=== PATIENT | male | born 1960 | race Caucasian/White ===

== ENCOUNTER 2020-01-06 08:21 | Emergency (ER) | payer OTHER ==
[~2020-01-06] VITALS: Ht 179.1 cm; Wt 114.2 kg
[2020-01-06] MEDS ORDERED: IV NORMAL SALINE 1,000ML 1,000 ML IV SCH (08:32)
--- NOTE | 2020-01-06 08:40 | PHYS DOC ---
Past History Past Medical History: Arthritis, Hyperthyroid Past Medical History chronic alcohol use, rosasia Past Surgical History hernia, knee, lipoma Smoking: Non-smoker Alcohol Use: Heavy Drug Use: None General Adult EDM: Chief Complaint: abd pain, decreased urination HPI: HPI: Patient is a 59 year old male who presents for evaluation of difficulty urination some constipation followed by intermittent loose stools as well as diffuse abdominal pain. Patient has pain to both of his lower sides of his abdomen and his upper abdominal area. Patient denied any black, bloody or tarry stools. Patient had nausea and vomiting about 4 AM yesterday. Patient denies any urinary complaints including bloody urine, burning urgency or frequency. Patient states that he has been under a lot of stress this week as a spouse is left him. He has consumed more alcohol than normal. Patient's main presenting concern was his difficulty urination. Patient states that due to discomfort he also had trouble sleeping. Patient is also concerned about his hemorrhoids. [place] Review of Systems: Review of Systems: Constitutional: Denies fever or chills Eyes: Denies change in visual acuity HENT: Denies nasal congestion or sore throat Respiratory: Denies cough or shortness of breath Cardiovascular: Denies chest pain or edema GI: has abdominal pain with nausea and vomiting, no bloody stools or diarrhea : Denies dysuria Musculoskeletal: Denies back pain or joint pain Integument: Denies rash Neurologic: Denies headache, focal weakness or sensory changes Endocrine: Denies polyuria or polydipsia Lymphatic: Denies swollen glands Psychiatric: has depression and anxiety Heart Score: HEART Score for Chest Pain: HEART Score for Chest Pain Response (Comments) Value History Slighlty/Non-Suspicious 0 ECG Normal 0 Age >45 - < 65 1 Risk Factors 1 or 2 Risk Factors 1 Troponin < Normal Limit 0 Total 2 Risk Factors: Risk Factors: DM, Current or recent (<one month) smoker, HTN, HLP, family history of CAD, obesity. Risk Scores: Score 0 - 3: 2.5% MACE over next 6 weeks - Discharge Home Score 4 - 6: 20.3% MACE over next 6 weeks - Admit for Clinical Observation Score 7 - 10: 72.7% MACE over next 6 weeks - Early Invasive Strategies Physical Exam: PE: Constitutional: Well developed, well nourished, mild to early moderate distress, non-toxic appearance. [] HENT: Normocephalic, atraumatic, bilateral external ears normal, oropharynx moist, no oral exudates, nose normal. [] Eyes: PERRL, EOMI, conjunctiva normal, no discharge. [] Neck: Normal range of motion, no tenderness, supple, no stridor. [] Cardiovascular:Tachy rate, regular rhythm, no murmur [] Lungs & Thorax: Bilateral breath sounds clear to auscultation [] Abdomen: Bowel sounds normal, soft, mild epigastric tenderness, no masses, no pulsatile masses. [] Skin: Warm, dry, no erythema, no rash. [] Back: No tenderness, no CVA tenderness. [] Extremities: No tenderness, no cyanosis, no clubbing, ROM intact, no edema. [] Neurologic: Alert and oriented X 3, normal motor function, normal sensory function, no focal deficits noted. [] Psychologic: Affect normal, judgement normal,anxious mood, no homicidal or suicidal. Rectal: Small nonbleeding hemorrhoid present, normal colored stool, minimally tender, slight prostate enlargement [] Current Patient Data: Labs: Laboratory Tests Test 01/06/20 08:51 01/06/20 09:10 White Blood Count 6.1 x10^3/uL Red Blood Count 4.91 x10^6/uL Hemoglobin 16.0 g/dL Hematocrit 47.1 % Mean Corpuscular Volume 96 fL Mean Corpuscular Hemoglobin 33 pg Mean Corpuscular Hemoglobin Concent 34 g/dL Red Cell Distribution Width 13.6 % Platelet Count 115 x10^3/uL Neutrophils (%) (Auto) 60 % Lymphocytes (%) (Auto) 30 % Monocytes (%) (Auto) 7 % Eosinophils (%) (Auto) 3 % Basophils (%) (Auto) 1 % Neutrophils # (Auto) 3.7 x10^3uL Lymphocytes # (Auto) 1.9 x10^3/uL Monocytes # (Auto) 0.4 x10^3/uL Eosinophils # (Auto) 0.2 x10^3/uL Basophils # (Auto) 0.0 x10^3/uL Sodium Level 137 mmol/L Potassium Level 3.2 mmol/L Chloride Level 100 mmol/L Carbon Dioxide Level 28 mmol/L Anion Gap 9 Blood Urea Nitrogen 12 mg/dL Creatinine 1.0 mg/dL Estimated GFR (Cockcroft-Gault) 76.2 BUN/Creatinine Ratio 12 Glucose Level 189 mg/dL Calcium Level 9.1 mg/dL Total Bilirubin 1.9 mg/dL Aspartate Amino Transf (AST/SGOT) 114 U/L Alanine Aminotransferase (ALT/SGPT) 113 U/L Alkaline Phosphatase 131 U/L Troponin I Quantitative < 0.017 ng/mL Total Protein 7.6 g/dL Albumin 3.8 g/dL Albumin/Globulin Ratio 1.0 Lipase 243 U/L Urine Collection Type Void Urine Color Masha Urine Clarity Clear Urine pH 7.0 Urine Specific Webster 1.020 Urine Protein 30 mg/dl Urine Glucose (UA) Neg mg/dL Urine Ketones (Stick) 15 mg/dL Urine Blood Trace Urine Nitrite Neg Urine Bilirubin Small Urine Urobilinogen Dipstick 1.0 mg/dL Urine Leukocyte Esterase Neg Urine RBC 0 /HPF Urine WBC 1-4 /HPF Urine Squamous Epithelial Cells Occ /LPF Urine Bacteria 0 /HPF Urine Mucus Slight /LPF Current Medications Medications (Trade) Dose Ordered Sig/Timmy Route PRN Reason Start Time Stop Time Status Last Admin Dose Admin Sodium Chloride 1,000 ml @ 1,000 mls/hr Q1H IV 01/06/20 08:32 01/06/20 09:31 DC 01/06/20 08:52 Famotidine (Pepcid Vial) 20 mg 1X ONCE IVP 01/06/20 08:45 01/06/20 08:46 DC 01/06/20 08:53 Hydralazine HCl (Apresoline) 10 mg 1X ONCE IV 01/06/20 08:45 01/06/20 08:58 DC Famotidine (Pepcid Vial) 20 mg STK-MED ONCE .ROUTE 01/06/20 08:45 01/06/20 08:45 DC Hydralazine HCl (Apresoline) 20 mg STK-MED ONCE .ROUTE 01/06/20 08:45 01/06/20 08:45 DC Hydralazine HCl (Apresoline) 5 mg 1X ONCE IV 01/06/20 09:00 01/06/20 09:02 DC 01/06/20 09:03 EKG: EKG: EKG read at 8:44 AM shows sinus tacky rate 108 with a leftward axis, otherwise unremarkable EKG, not STEMI [] Radiology/Procedures: Radiology/Procedures: [address] [address] IMAGING REPORT Signed PATIENT: HAILE HAYES ACCOUNT: [id number] : 1960 LOCATION: ER AGE: 59 SEX: M EXAM STATUS: REG ER ORD. PHYSICIAN: MELO CASILLAS DO REASON: upper abd pain, short of air PROCEDURE: PORTABLE CHEST 1V Examination: PORTABLE CHEST 1V History: Reason: upper abd pain, short of air / Spl. Instructions: / History: Comparison/Correlation: None Findings: Portable chest x-ray shows performed. Heart size and pulmonary vasculature are normal. No infiltrate or pleural effusion. No pneumothorax. Calcified granulomas are present. Bony structures are unremarkable. Impression: No active disease. Electronically signed by: Anuj Virgen MD (01/06/2020 8:56 AM) [id number] DICTATED AND SIGNED BY: ANUJ VIRGEN MD DATE: 01/06/20 0856 CC: PCP,UNKNOWN; MELO CASILLAS DO ~ [] Impressions: [address] [address] IMAGING REPORT Signed PATIENT: HAILE HAYES ACCOUNT: [id number] : 1960 LOCATION: ER AGE: 59 SEX: M EXAM STATUS: REG ER ORD. PHYSICIAN: MELO CASILLAS DO REASON: abd pain, loose stools PROCEDURE: CT ABD PELV W/ORAL&IV CONTRAST Examination: CT ABD PELV W/ORAL IV CONTRAST History: Reason: abd pain, loose stools / Spl. Instructions: DRINKING 04-15 / History: Comparison/Correlation: None Findings: Axial images of the abdomen and pelvis were obtained following IV and oral contrast. Sagittal and coronal reformatted images were provided. Visualized lung bases are unremarkable. Liver is unremarkable. Spleen measures 13.8 cm longitudinal by 14.9 cm x 6 cm with calcified granulomas. Pancreas is normal. The adrenal glands are normal. Bilateral renal low-attenuation lesions are too small to characterize but appear to represent cysts and do not require follow-up. A right inferior pole nonobstructive calyceal calculus measuring 0.4 cm diameter is present. No hydronephrosis. No extraluminal gas. No inflammatory findings about the cecum. Appendix is not delineated. No enlarged abdominal or pelvic lymph nodes. The gallbladder fossa is unremarkable. Small umbilical hernia containing fat. Urinary bladder is unremarkable. Prostate gland measures 5.9 cm x 3.3 cm. Moderate to severe L1-2 disc space narrowing is present. Moderate L3-4 and L4-5 disc space narrowing also seen. Impression: No inflammatory process or obstruction. Borderline to mildly enlarged spleen. No mass seen. Mild prostatomegaly. Nonobstructive right renal lower pole calyceal calculus. PQRS Compliance Statement: One or more of the following individualized dose reduction techniques were utilized for this examination: 1. Automated exposure control 2. Adjustment of the mA and/or kV according to patient size 3. Use of iterative reconstruction technique Electronically signed by: Anuj Virgen MD (01/06/2020 11:36 AM) [id number] DICTATED AND SIGNED BY: ANUJ VIRGEN MD DATE: 01/06/20 1136 CC: PCP,UNKNOWN; MELO CASILLAS DO ~ Course & Med Decision Making: Course & Med Decision Making Pertinent Labs and Imaging studies reviewed. (See chart for details) [] Dragon Disclaimer: Dragon Disclaimer: This electronic medical record was generated, in whole or in part, using a voice recognition dictation system. 1145 stable, patient reassessed and pain is essentially resolved. CT scan showed stable results. Patient does have an enlarged prostate with may be contributing to his difficulty in urinating. There is no evidence of a urinary tract infection. Patient does not have pancreatitis. Prescription for Zofran given since patient has been vomiting about 24 hours ago. Bottom line he is medically stable for discharge and no indication for admission. Close follow-up recommended. Patient is also aware he has a stone in his kidney but not a hydroureter. No evidence of colitis or obstruction Departure Departure: Impression: Primary Impression: Abdominal pain, generalized Additional Impressions: Dysuria Enlarged prostate Constipated Qualified Codes: K59.00 - Constipation, unspecified Nausea & vomiting Disposition: HOME/RESIDENCE PRIOR TO ADM Condition: STABLE Referrals: PCP,UNKNOWN (PCP) Patient Instructions: Abdominal Pain, Constipation, Adult, Nausea and Vomiting, Prostate Problems Additional Instructions: Drink plenty fluids, rest, use [id number] MiraLAX or equivalent as directed to help you with your bowel movements. You have an enlarged prostate that will need follow-up with your physician. There was no dangerous finding on your CT scan. Prescription for Zofran given Scripts Ondansetron Hcl (ZOFRAN) 4 Mg Tablet 1 TAB PO PRN Q6HRS PRN for NAUSEA, #12 TAB Prov: MELO CASILLAS DO 01/06/20 Justification of Admission: Justification of Admission: Justification of Admission Dx: N/A MELO CASILLAS DO Jan 06, 2020 08:40
[2020-01-06] MEDS ORDERED: FAMOTIDINE 20 MG/2 ML VIAL ONE (08:45)
[2020-01-06] MEDS ORDERED: hydrALAZINE 20 MG/ML VIAL. ONE (08:45)
[2020-01-06] MEDS ORDERED: FAMOTIDINE 20 MG/2 ML VIAL IVP ONE (08:45)
[2020-01-06] MEDS ORDERED: hydrALAZINE 20 MG/ML VIAL. IV ONE ×2 (08:45→09:00)
--- NOTE | 2020-01-06 08:59 | RAD ---
Examination: PORTABLE CHEST 1V History: Reason: upper abd pain, short of air / Spl. Instructions: / History: Comparison/Correlation: None Findings: Portable chest x-ray shows performed. Heart size and pulmonary vasculature are normal. No infiltrate or pleural effusion. No pneumothorax. Calcified granulomas are present. Bony structures are unremarkable. Impression: No active disease. Electronically signed by: Anuj Ivy MD (01/06/2020 8:56 AM) [id number]
[2020-01-06 09:14] LABS: BASO % 1 % (0-3); EOS # 0.2 x10^3/uL (0.0-0.7); EOS % 3 % (0-3); HEMATOCRIT 47.1 % (39.0-53.0); LYMPH # 1.9 x10^3/uL (1.0-4.8); LYMPH % 30 % (24-48); MEAN CORPUSCULAR HEMOGLOBIN 33 pg (25-35); MEAN CORPUSCULAR HGB CONC 34 g/dL (31-37); MEAN CORPUSCULAR VOLUME 96 fL (79-100); MONO # 0.4 x10^3/uL (0.0-1.1); MONO % 7 % (0-9); NEUT # 3.7 x10^3uL (1.8-7.7); NEUT % 60 % (31-73); PLATELET COUNT 115 x10^3/uL (140-400); RED BLOOD COUNT 4.91 x10^6/uL (4.30-5.70); RED CELL DISTRIBUTION WIDTH 13.6 % (11.5-14.5); WHITE BLOOD COUNT 6.1 x10^3/uL (4.0-11.0)
[2020-01-06 09:20] LABS: CALCIUM 9.1 mg/dL (8.5-10.1); GFR 76.2; POTASSIUM 3.2 mmol/L (3.5-5.1)
[2020-01-06 09:26] LABS: ALBUMIN 3.8 g/dL (3.4-5.0); TOTAL BILIRUBIN 1.9 mg/dL (0.2-1.0); TOTAL PROTEIN 7.6 g/dL (6.4-8.2)
[2020-01-06 09:45] LABS: BILIRUBIN,URINE SMALL (NEG); CLARITY,URINE CLEAR; COLOR,URINE AMBER; GLUCOSE,URINE NEG (NEG)
[2020-01-06 09:46] LABS: BACTERIA,URINE 0 /HPF (0-FEW); NITRITE,URINE NEG (NEG); RBC,URINE 0 /HPF (0-2); SQUAMOUS EPITHELIAL CELL,UR OCC /LPF
[2020-01-06] MEDS ORDERED: IOHEXOL 240 MG/ML 50ML VIAL. ONE (09:55)
[2020-01-06] MEDS ORDERED: IOHEXOL 240 MG/ML 50ML VIAL. PO ONE (10:15)
[2020-01-06] MEDS ORDERED: IOHEXOL 300 MG/ML 75 ML VIAL. IV ONE (10:15)
[2020-01-06 10:31] LABS: FECAL OB PT POSITIVE (NEG)
--- NOTE | 2020-01-06 10:42 | EKG ---
[address] [address] Test Date: 2020-01-06 Test Time: 08:40:06 Pat Name: HAILE HAYES Department: Room: Gender: M [employer]: : 1960 Requested By: MELO CASILLAS Order Number: [id number] Reading MD: Measurements Intervals [place] Rate: 108 P: 52 NV: 142 QRS: 2 QRSD: 92 T: 25 QT: 338 QTc: 457 Interpretive Statements SINUS TACHYCARDIA OTHERWISE NORMAL ECG RI6.02 No previous ECG available for comparison
--- NOTE | 2020-01-06 11:39 | RAD ---
Examination: CT ABD PELV W/ORAL IV CONTRAST History: Reason: abd pain, loose stools / Spl. Instructions: DRINKING 10-11 / History: Comparison/Correlation: None Findings: Axial images of the abdomen and pelvis were obtained following IV and oral contrast. Sagittal and coronal reformatted images were provided. Visualized lung bases are unremarkable. Liver is unremarkable. Spleen measures 13.8 cm longitudinal by 14.9 cm x 6 cm with calcified granulomas. Pancreas is normal. The adrenal glands are normal. Bilateral renal low-attenuation lesions are too small to characterize but appear to represent cysts and do not require follow-up. A right inferior pole nonobstructive calyceal calculus measuring 0.4 cm diameter is present. No hydronephrosis. No extraluminal gas. No inflammatory findings about the cecum. Appendix is not delineated. No enlarged abdominal or pelvic lymph nodes. The gallbladder fossa is unremarkable. Small umbilical hernia containing fat. Urinary bladder is unremarkable. Prostate gland measures 5.9 cm x 3.3 cm. Moderate to severe L1-2 disc space narrowing is present. Moderate L3-4 and L4-5 disc space narrowing also seen. Impression: No inflammatory process or obstruction. Borderline to mildly enlarged spleen. No mass seen. Mild prostatomegaly. Nonobstructive right renal lower pole calyceal calculus. PQRS Compliance Statement: One or more of the following individualized dose reduction techniques were utilized for this examination: 1. Automated exposure control 2. Adjustment of the mA and/or kV according to patient size 3. Use of iterative reconstruction technique Electronically signed by: Anuj Ivy MD (01/06/2020 11:36 AM) [id number]
[2020-01-06] MEDS ORDERED: ONDA4TAB7 PO (11:50)
[2020-01-06 11:55] VITALS: BP 186/105
== END 2020-01-06 11:55 | disposition home or self-care (01) ==
LOC: ER 08:21
DX: K59.00 Constipation, unspecified (principal); N40.0 Benign prostatic hyperplasia without lower urinary tract symptoms; R30.0 Dysuria; R11.2 Nausea with vomiting, unspecified; M19.90 Unspecified osteoarthritis, unspecified site; E05.90 Thyrotoxicosis, unspecified without thyrotoxic crisis or storm; F10.20 Alcohol dependence, uncomplicated; Y90.9 Presence of alcohol in blood, level not specified
CPT/HCPCS: 36415; 71045; 74177; 80053; 81001; 82274; 83690; 84484; 85025; 93005; 96361; 96374; 96375; 99285; J0360; J3490; J7030; Q9966; Q9967

== ENCOUNTER 2020-06-10 23:20 | Emergency (ER) | payer OTHER ==
[~2020-06-10] VITALS: Ht 179.1 cm; Wt 117.0 kg
[~2020-06-10 23:20] MED LIST: ONDA4TAB7 PO
--- NOTE | 2020-06-10 23:35 | PHYS DOC ---
Past History Past Medical History: Arthritis, Hyperthyroid Additional Past Medical Histor: rosacea Past Medical History Enlarged prostate Past Surgical History: Other Additional Past Surgical Histo: hernia repair; lypoma removed left groin; right shoulder; right knee Smoking: Non-smoker Alcohol Use: Heavy Drug Use: None General Adult EDM: Chief Complaint: NAUSEA/VOMITING/DIARRHEA HPI: HPI: ".. I ve been vomiting constant... I think it was bad left over chilli... I can't even keep my meds now... I did drink a little bit too much on Thursday...".. " My left me.. three days ago.. we had an argument over me distal discipline for her son,, he 14.. well anyway... I did a alcohol culp.. really over did it .. I done that before.. but I always stop.. " Patient is a 59 year old retired [employer] male who presents with above hx and complaints of nausea, vomiting, fever, chills, arthralgia, myalgia, malaise last 2 days. Patient has a 30-year history. Patient thinks symptoms started after eating some bad chili. Patient does admit to heavy drinking on Thursday . Patient does not drink alcohol every day. No recent travel outside the [place] area. No specific ill contacts. Does have a history of hypertension, however has not been unable to take his hypertensive meds because of the nausea and vomiting. Patient does have a history of hyperthyroid, and arthritis. Patient does have a history of hyperplasia of prostate. The pt. follows with [facility] and [place] for his health care. Patient denies any previous history of hepatitis. Has had multiple overseas tours of duty. Has been generally healthy up to the last few years. Review of Systems: Review of Systems: Constitutional: Complains of fever and chills Eyes: Denies change in visual acuity HENT: Complains of sore throat Respiratory: Complaints of some nonproductive cough Cardiovascular: Denies chest pain or edema GI: Complains of epigastric abdominal pain, nausea, vomiting,. Patient denies a ny diarrhea. : Denies dysuria . Patient does have history of urinary retention secondary to enlarged prostate Musculoskeletal: Denies back pain or joint pain Integument: Denies rash Neurologic: Denies headache, focal weakness or sensory changes Endocrine: Denies polyuria or polydipsia Lymphatic: Denies swollen glands Psychiatric: History of recent depression over his leaving 3 days ago. Patient denies any suicidal ideation. Family History: Family History: Noncontributory to presentation Current Medications: Current Meds: See nursing for home meds Allergies: Allergies: Allergies Coded Allergies Type Severity Reaction Last Updated Verified No Known Drug Allergies 01/06/20 No Physical Exam: PE: Constitutional: In acute distress, ill in appearance. [] HENT: Normocephalic, atraumatic, bilateral external ears normal, oropharynx dry , no oral exudates, nose normal. [] Eyes: PERRLA, EOMI, conjunctiva normal, no discharge. [] Neck: Normal range of motion, no tenderness, supple, no stridor. [] Cardiovascular: Tachycardia heart rate regular rhythm, no murmur, PMI to the lef t Lungs & Thorax: Bilateral breath sounds equal apex with scattered wheezes on auscultation [] Abdomen: Bowel sounds hyperactive, soft, some localization upper right quadrant and epigastric, but has generalized tenderness, no masses, no pulsatile masses. Rebound to epigastric area. Lt. groin scar. Skin: Warm, dry, no erythema, rosacea. Poor turgor Back: No tenderness, no CVA tenderness. [] Extremities: No tenderness, no cyanosis, no clubbing, ROM intact, no edema. Rt. shoulder scar., Neurologic: Alert and oriented X 3, moves all extremities on request, does have distal sensory, no focal deficits noted. Does have a fine tremor Psychologic: Affect anxious, judgement normal, mood normal. [] EKG: EKG: My interpretation EKG shows sinus tachycardia 114 bpm. No findings of acute STEMI with contralateral lateral changes. [] Radiology/Procedures: Radiology/Procedures: [[address] [address] IMAGING REPORT Signed PATIENT: HAILE HAYES ACCOUNT: [id number] : 1960 LOCATION: ER AGE: 59 SEX: M EXAM STATUS: REG ER ORD. PHYSICIAN: KATELYNN ROD MD REASON: NV, PAIN, ELV. LFTS, OMNI 300, 75ml & OMNI 240, 30ml PROCEDURE: CT ABD PELV W/ORAL&IV CONTRAST CT ABD PELV W/ORAL IV CONTRAST History: Reason: NV, PAIN, ELV. LFTS, OMNI 300, 75ml OMNI 240, 30ml / Spl. Instructions: / History: Technique: Noncontrast examination of the abdomen and pelvis. Coronal and sagittal reconstructions were performed. Exposure: One or more of the following individualized dose reduction techniques were utilized for this examination: 1. Automated exposure control 2. Adjustment of the mA and/or kV according to patient size 3. Use of iterative reconstruction technique. Comparison: January 06, 2020 Findings: Lower chest: No consolidation or pleural effusion. Abdomen and pelvis: Hepatic steatosis. Slightly nodular contour of the liver. The spleen, adrenal glands, pancreas and gallbladder are unremarkable. No biliary ductal dilatation. Small bilateral renal hypodensities, likely cysts. Punctate right inferior intrarenal calculus. No hydronephrosis. Appendix not well identified. No evidence of bowel obstruction. Oral contrast opacifies to the level of the cecum. Small fat-containing umbilical hernia. No ascites. Atheromatous plaque throughout the nonaneurysmal abdominal aorta and branch vessels. Minimal dahlia mesentery with prominent mesenteric lymph nodes, unchanged. Bones: No pathologic osseous lesions. Impression: 1. No acute abdominal or pelvic pathology. 2. Slightly nodular contour of the liver, can be seen with chronic liver disease. 3. Nonobstructing right inferior intrarenal calculus. 4. Hepatic steatosis. Electronically signed by: Brett Medina DO (06/11/2020 4:01 AM) [facility] DICTATED AND SIGNED BY: BRETT MEDINA DO DATE: 06/11/20400 CC: KATELYNN ROD MD; PCP,UNKNOWN ~MTH0 0 ][address] [address] IMAGING REPORT Signed PATIENT: HAILE HAYES ACCOUNT: [id number] : 1960 LOCATION: ER AGE: 59 SEX: M EXAM STATUS: PRE ER ORD. PHYSICIAN: KATELYNN ROD MD REASON: pain, n/v PROCEDURE: ACUTE ABDOMEN SERIES ACUTE ABDOMEN SERIES History: Reason: pain, n/v / Spl. Instructions: / History: Technique: Supine and upright views of the abdomen. Comparison: None. Findings: No consolidation or pleural effusion. No pneumothorax. Normal heart size. No pneumoperitoneum. Several nondilated air-filled loops of small bowel within the mid abdomen. Air and stool scattered throughout the imaged colon. No air-fluid levels identified. Vascular calcifications. Impression: 1. Nonspecific nonobstructed bowel gas pattern. Electronically signed by: Brett Medina DO (06/11/2020 1:59 AM) [facility] DICTATED AND SIGNED BY: BRETT MEDINA DO DATE: 06/11/20 0159 CC: KATELYNN ROD MD ~MTH0 0 Heart Score: HEART Score for Chest Pain: HEART Score for Chest Pain Response (Comments) Value History Slighlty/Non-Suspicious 0 ECG Normal 0 Age >45 - < 65 1 Risk Factors 1 or 2 Risk Factors 1 Troponin < Normal Limit 0 Total 2 Risk Factors: Risk Factors: DM, Current or recent (<one month) smoker, HTN, HLP, family history of CAD, obesity. Risk Scores: Score 0 - 3: 2.5% MACE over next 6 weeks - Discharge Home Score 4 - 6: 20.3% MACE over next 6 weeks - Admit for Clinical Observation Score 7 - 10: 72.7% MACE over next 6 weeks - Early Invasive Strategies Course & Med Decision Making: Course & Med Decision Making Pertinent Labs and Imaging studies reviewed. (See chart for details) Re-exam 0200 hrs. Still very tender epigastric and right upper quadrant. Will order CT. Patient reported marked relief of his symptoms at 0500 hrs. Requesting discharge home. Patient declines admission at this time. Reviewed his multiple medical issues. Encourage patient to stop all alcohol use. Take a multivitamin. To self isolate the next 10 days. To wear a mask anytime he is away from home covering his nose and mouth. Patient to review his ED work-up with his primary care. Patient follow up pending labs such as acute hepatitis panel. Consider outpatient ultrasound evaluation for DVT, however suspect his elevated D-dimer is related to viral syndrome-Covid. Consider Covid testing after completing self-isolation for 7 to 10 days. Impression: 1. Nausea and vomiting 2. Dehydration 3. Diabetes glucose 209 4. Elevated LFT's AST< ALT, Alk Phos. 83/89/118 T.Bil1.9/D 0.5 5. Elevated CK 924 6. Elevated D. Dimer 0.89 7. Viral syndrome 8. Accelerated hypertension [] Dragon Disclaimer: Dragon Disclaimer: This electronic medical record was generated, in whole or in part, using a voice recognition dictation system. Departure Departure: Scripts Apixaban (ELIQUIS) 2.5 Mg Tablet 2.5 MG PO BID for elevate D-dimer, for 14 Days, #28 TAB Prov: KATELYNN ROD MD 06/11/20 Ondansetron Hcl (ZOFRAN) 4 Mg Tablet 8 MG PO QIDPRN PRN for NAUSEA/VOMITING, #30 TAB Prov: KATELYNN ROD MD 06/11/20 Dragmac Disclaimer This chart was dictated in whole or in part using Voice Recognition software in a busy, high-work load, and often noisy Emergency Department environment. It may contain unintended and wholly unrecognized errors or omissions. Dragon Disclaimer This chart was dictated in whole or in part using Voice Recognition software in a busy, high-work load, and often noisy Emergency Department environment. It may contain unintended and wholly unrecognized errors or omissions. KATELYNN ROD MD Jun 10, 2020 23:35
[2020-06-10] MEDS ORDERED: IV RINGERS SOLUTION,LACTATED 1,000 ML IV SCH (23:45)
[2020-06-10] MEDS ORDERED: ONDANSETRON PF 4 MG/2 ML VIAL. IVP ONE (23:45)
[2020-06-11 00:16] LABS: BASO % 1 % (0-3); EOS % 0 % (0-3); HEMATOCRIT 41.2 % (39.0-53.0); LYMPH # 1.8 x10^3/uL (1.0-4.8); LYMPH % 26 % (24-48); MEAN CORPUSCULAR HEMOGLOBIN 32 pg (25-35); MEAN CORPUSCULAR HGB CONC 34 g/dL (31-37); MEAN CORPUSCULAR VOLUME 94 fL (79-100); MONO # 0.4 x10^3/uL (0.0-1.1); MONO % 6 % (0-9); NEUT # 4.5 x10^3uL (1.8-7.7); NEUT % 67 % (31-73); PLATELET COUNT 94 x10^3/uL (140-400); RED CELL DISTRIBUTION WIDTH 13.3 % (11.5-14.5); WHITE BLOOD COUNT 6.8 x10^3/uL (4.0-11.0)
[2020-06-11 00:23] LABS: CALCIUM 9.1 mg/dL (8.5-10.1); GFR 76.2; POTASSIUM 3.6 mmol/L (3.5-5.1)
[2020-06-11] MEDS ORDERED: cloNIDine HCL 0.1 MG TABLET PO ONE (00:30)
[2020-06-11] MEDS ORDERED: cloNIDine TTS-2 1 PATCH PATCH TD ONE (00:30)
[2020-06-11 00:35] LABS: ALBUMIN 3.8 g/dL (3.4-5.0); DIRECT BILIRUBIN 0.5 mg/dL (0.0-0.2); MAGNESIUM 1.5 mg/dL (1.8-2.4); TOTAL BILIRUBIN 1.9 mg/dL (0.2-1.0); TOTAL PROTEIN 7.4 g/dL (6.4-8.2)
[2020-06-11 01:53] LABS: INFLUENZA A PATIENT NEGATIVE (NEGATIVE); INFLUENZA B PATIENT NEGATIVE (NEGATIVE)
[2020-06-11 01:55] LABS: BACTERIA,URINE 0 /HPF (0-FEW); BILIRUBIN,URINE NEG (NEG); CLARITY,URINE CLEAR; COLOR,URINE YELLOW; GLUCOSE,URINE NEG (NEG); NITRITE,URINE NEG (NEG); RBC,URINE OCC /HPF (0-2); SQUAMOUS EPITHELIAL CELL,UR OCC /LPF; UROBILINOGEN,URINE 0.2 mg/dL (0.2 mg/dL); WBC,URINE OCC /HPF (0-4)
--- NOTE | 2020-06-11 02:03 | RAD ---
ACUTE ABDOMEN SERIES History: Reason: pain, n/v / Spl. Instructions: / History: Technique: Supine and upright views of the abdomen. Comparison: None. Findings: No consolidation or pleural effusion. No pneumothorax. Normal heart size. No pneumoperitoneum. Several nondilated air-filled loops of small bowel within the mid abdomen. Air and stool scattered throughout the imaged colon. No air-fluid levels identified. Vascular calcifications. Impression: 1. Nonspecific nonobstructed bowel gas pattern. Electronically signed by: Brett Medina DO (06/11/2020 1:59 AM) [facility]
[2020-06-11] MEDS ORDERED: IOHEXOL 300 MG/ML 75 ML VIAL. IV ONE (02:30)
[2020-06-11] MEDS ORDERED: IOHEXOL 240 MG/ML 50ML VIAL. PO ONE (02:30)
[2020-06-11] MEDS ORDERED: CONTRAST GIVEN. MC PRN (02:30)
--- NOTE | 2020-06-11 04:04 | RAD ---
CT ABD PELV W/ORAL IV CONTRAST History: Reason: NV, PAIN, ELV. LFTS, OMNI 300, 75ml OMNI 240, 30ml / Spl. Instructions: / History: Technique: Noncontrast examination of the abdomen and pelvis. Coronal and sagittal reconstructions were performed. Exposure: One or more of the following individualized dose reduction techniques were utilized for this examination: 1. Automated exposure control 2. Adjustment of the mA and/or kV according to patient size 3. Use of iterative reconstruction technique. Comparison: January 06, 2020 Findings: Lower chest: No consolidation or pleural effusion. Abdomen and pelvis: Hepatic steatosis. Slightly nodular contour of the liver. The spleen, adrenal glands, pancreas and gallbladder are unremarkable. No biliary ductal dilatation. Small bilateral renal hypodensities, likely cysts. Punctate right inferior intrarenal calculus. No hydronephrosis. Appendix not well identified. No evidence of bowel obstruction. Oral contrast opacifies to the level of the cecum. Small fat-containing umbilical hernia. No ascites. Atheromatous plaque throughout the nonaneurysmal abdominal aorta and branch vessels. Minimal dahlia mesentery with prominent mesenteric lymph nodes, unchanged. Bones: No pathologic osseous lesions. Impression: 1. No acute abdominal or pelvic pathology. 2. Slightly nodular contour of the liver, can be seen with chronic liver disease. 3. Nonobstructing right inferior intrarenal calculus. 4. Hepatic steatosis. Electronically signed by: Brett Medina DO (06/11/2020 4:01 AM) [facility]
[2020-06-11 04:14] VITALS: BP 155/82
[2020-06-11] MEDS ORDERED: APIXABAN 2.5 MG TABLET ONE (04:57)
[2020-06-11] MEDS ORDERED: ONDA4TAB7 PO (05:00)
[2020-06-11] MEDS ORDERED: APIX2.5T PO (05:00)
[2020-06-11] MEDS ORDERED: APIXABAN 2.5 MG TABLET PO ONE (05:30)
--- NOTE | 2020-06-11 09:00 | EKG ---
[address] [address] Test Date: 2020-06-11 Test Time: 00:00:25 Pat Name: HAILE HAYES Department: Room: Gender: M Insurance Follow Up Representative: LAMBERTO : 1960 Requested By: KATELYNN ROD Order Number: [id number] Reading MD: Measurements Intervals [place] Rate: 114 P: 45 MI: 158 QRS: 33 QRSD: 98 T: 20 QT: 348 QTc: 483 Interpretive Statements SINUS TACHYCARDIA OTHERWISE NORMAL ECG RI6.02 No previous ECG available for comparison
== END 2020-06-11 05:30 | disposition home or self-care (01) ==
LOC: ER 23:20
DX: E86.0 Dehydration (principal); E11.9 Type 2 diabetes mellitus without complications; R74.8 Abnormal levels of other serum enzymes; B34.9 Viral infection, unspecified; I10 Essential (primary) hypertension; M19.90 Unspecified osteoarthritis, unspecified site; E05.90 Thyrotoxicosis, unspecified without thyrotoxic crisis or storm; F10.20 Alcohol dependence, uncomplicated; Y90.0 Blood alcohol level of less than 20 mg/100 ml
CPT/HCPCS: 36415; 74022; 80048; 80076; 81001; 82550; 83690; 83735; 83880; 84443; 84484; 85025; 85379; 85610; 85730; 86705; 86709; 86803; 87070; 87340; 87804; 87880; 93005; 96361; 96374; 96375; 99285; G0480